=== PATIENT | female | born 1970 | race Caucasian/White ===

== ENCOUNTER 2021-12-25 07:43 | Outpatient (CLI) | payer OTHER, SELFPAY ==
--- NOTE | 2021-12-25 08:00 | CRLHL7_ITS ---
For Patients: As a result of the Century Cures Act, medical imaging exams and procedure reports are released immediately into your electronic medical record. You may view this report before your referring provider. If you have questions, please contact your health care provider. MYOCARDIAL PERFUSION SCAN - [facility] - [facility] CLINICAL HISTORY: 51-year-old female. Chest pain. Shortness of breath. Height 5 feet 8 inches, weight 155 pounds. TECHNIQUE: Resting SPECT and stress gated SPECT with wall motion and ejection fraction) Stress: Treadmill (7 minutes 15 seconds) Maximum heart rate: 156 bpm Maximum systolic blood pressure: 181 mmHg systolic Rate pressure product: 28,236 Dose (Stress/Rest): 32.9 mCi/8.45 mCi Tc-99m Sestamibi IV Comparison: None FINDINGS: There is good uptake of activity by the left ventricle. No left ventricular enlargement is noted. End diastolic volume 56 mL. End systolic volume 16 mL. There are no significant fixed or reversible defects identified. Gated images demonstrate a normal left ventricular ejection fraction of greater than 70 percent. No regional wall motion abnormalities are identified. IMPRESSION: 1. No evidence of significant myocardial ischemia or infarction. 2. Normal left ventricular ejection fraction of greater than 70 percent. This study was jointly reviewed by radiology and cardiology. NANETTE ANDRES M.D. Diagnostic/Nuclear Medicine Radiologist [email or web address] EMIL JARRELL M.D. CO-READER Department of Cardiology [facility]/Dictated by: Nanette Andres MD @ 12/25/2021 2:58:00 PM (Electronically Signed)
--- NOTE | 2021-12-25 08:56 | P.STN_ITS ---
Stress Test Note Date Time Seen by Provider: :18 Date Seen: 12/25/21 Date of test: 12/25/21 Providers Referring provider: Krishna Latham Primary care provider: Krishna Latham Stress test physician: Court Ramesh Stress Test Note Stress test ordered: Stress Myoview Indication for test: Chest pain. Patient's cardiac stress test medical history is reviewed. Stress test medicine: None Results discussion: Resting EKG: Sinus rhythm 73 beats per minute Resting blood pressure 116/82 Stress test: Patient exercised on the treadmill following standard Paul protocol. She exercise for a total of 7 minutes 15 seconds. I did see occas ional PVCs for which patient was asymptomatic but otherwise no arrhythmia. She achieved a 0.7 Mets. She had a maximal heart rate of 156 beats per minute which was 107% of a target calculated heart rate of 145. Calculated maximal heart rate was 171. She had no chest pain during the stress test. She had a rate pressure product of 23,616 maximal blood pressure in recovery of 181/110. Her blood pressure and pulse did recover nicely. There was no concerning ischemic EKG changes during monitoring. Patient will have post exercise images to couple this test for a full formal diagnostic. Impression: Subjectively negative, objectively negative EKG portion of this stress treadmill Myoview. Follow up suggested: Patient will get her formal report from Dr. Holt. She will have her post stress images obtained and then be discharged from there.
[2021-12-25 09:45] VITALS: BP 117/80; PULSE 88
== END 2021-12-25 07:44 | disposition home or self-care (01) ==
PROVIDERS: PCP Family Medicine; Visit Provider Family Medicine
DX: R07.89 Other chest pain (principal); R06.02 Shortness of breath
CPT/HCPCS: 78452; 93016; 93017; A9500